=== PATIENT | female | born 2000 | race Caucasian/White ===

== ENCOUNTER 2020-04-17 03:18 | Inpatient (IN) | payer OTHER ==
[~2020-04-17] VITALS: Ht 162.6 cm; Wt 86.5 kg
[2020-04-17 03:38] VITALS: BP 136/84
[2020-04-17] MEDS ORDERED: PRENTAB9 PO (04:29)
[2020-04-17 05:27] LABS: HEMATOCRIT 41.3 % (36.0-47.0); HEMOGLOBIN 13.7 g/dl (12.0-15.5); MEAN CORPUSCULAR HEMOGLOBIN 28.1 pg (27.0-33.0); MEAN CORPUSCULAR HGB CONC 33.2 g/dl (32.0-36.5); MEAN CORPUSCULAR VOLUME 84.8 fl (80.0-96.0); PLATELET COUNT, AUTOMATED 164 10^3/uL (150-450); RED BLOOD COUNT 4.87 10^6/uL (4.00-5.40); WHITE BLOOD COUNT 12.9 10^3/uL (4.0-10.0)
[2020-04-17] MEDS ORDERED: FENTANYL 2MCG/ML ROPIVACAINE 0.2% IN 0.9% NACL 100ML IVBAG As Ordered ONE (06:07)
--- NOTE | 2020-04-17 06:57 | HPEPDOC ---
Obstetrical History & Physical General Date of Admission Apr 17, 2020 at 05:03 History of Present Illness 19yo at 39+3 presenting for c/o worsening painful ctx's. She made cervical change from /50/-3 to now 4/80/-1 while under observation in triage. Denies VB, LOF, or DFM. 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 Past Medical History Surgical History: Denies/None Family History Significant Family History: Hypertension (Mother) Social History Marital Status: Family situation: Spouse/partner home Psychosocial History: No pertinent psych hx * Smoker: non-smoker Alcohol: Denies Drugs: denies Abuse Violence Screening Have you been hit/kicked/slapp: No Have you been sexually assault: No Imunizations Tdap status: current (01/31/2020) Influenza Status: declined Allergies Coded Allergies: No Known Allergies (Verified Allergy, Unknown, 04/17/20) Medications Scheduled No.137/Iron/Folic Acd ( Vitamin Tablet) 1 Each Tablet, 1 TAB PO DAILY Physical Examination Physical Examination GENERAL: Alert and oriented times three. HEENT: NC/AT, airway patent and self-maintained ABDOMEN: Gravid and non-tender to touch. FETUS: Is vertex (VTX) by sterile vaginal examination (SVE), fetus is vertex (VTX) by Toribio and TAUS CARDS: well-perfused RESP: no exaggerated respiratory effort appreciated. EXTREMITIES: No edema. Vital Signs/I&O Vital Signs Date Time Temp Pulse Resp B/P (MAP) Pulse Ox O2 Delivery O2 Flow Rate FiO2 04/17/20 03:38 98.1 85 20 136/84 (101) Laboratory Data 24H LABS Laboratory Tests 2 04/17/20 05:09: Serology Scanned Report Hepatitis B Testing 04/17/20 05:15: Nucleated Red Blood Cells % (auto) 0.0 CBC/BMP Laboratory Tests 04/17/20 05:15 Urine Culture: No Growth Pertinent Laboratoy Data Blood Type: B+ RBC Antibody Screen: Negative HIV: Negative Hepatitis B: Negative Rapid Plasma Reagin: Nonreactive Rubella: Immune Varicella: Nonreactive Chlamydia/Gonorrhea: Negative Group B Streptococcus: Negative (03/27/2020) Quad Screen Test: Declined Cystic Fibrosis: Unknown Glucose Tolerance Test: 97 Anatomy Ultrasound Ultrasound Date: Dec 07, 2019 Placenta Location: Posterior Normal Anatomy: Yes (5cm left ovarian cyst) Placenta Previa: No Other Ultrasounds [id number] - remaining of anatomic features visualized and normal. 4.8cm left ovarian cyst noted. EFW 57th percentile Vaginal Examination Dilation: 4 cm Effacement: 80% Station: -1 Cervical Consistency: Soft Cervical Position: Anterior Presentation: Cephalic presentation (by Yash) Assessment Heart Rate (FHR): 130 Variability: Moderate Accelerations: Positive Decelerations: None Tocometer Contractions: Yes Frequency: every 2-5 min. Multi-drug resistant Organism: No history of MDRO Assessment/Plan Assessment 19yo at 39+3wks presenting for ctx's and found to be in active labor. SVE 4/80/-1. Membranes intact. Normotensive, afebrile, FHRT cat I. GBS neg. EFW 3500g. Plan Admit and orient. Correction Worker and consent. Diet: clears as tolerated Group B Streptococcus (GBS) negative. Labs and intravenous (IV) per unit protocol. Counseled on AROM and Pitocin for augmentation of labor (IOL) if indicated. Lactated Ringers (LR): Bolus 1000 mL, then at 125 mL/hr. Patient may have epidural if desired. Anticipate normal spontaneous delivery (). C-S as appropriate. IGNACIO DAVID DO Apr 17, 2020 06:57
--- NOTE | 2020-04-17 09:38 | IPNPDOC ---
Obstetrical Progress Note Date of Service Apr 17, 2020 Subjective To room for interval assessment after patient request and placement of epidural. Objective Vital Signs Date Time Temp Pulse Resp B/P (MAP) Pulse Ox O2 Delivery O2 Flow Rate FiO2 04/17/20 03:38 98.1 85 20 136/84 (101) Assessment Heart Rate (FHR): 125 Variability: Moderate Accelerations: Positive Decelerations: None Heart Rate Tracing: Category I Tocometer Contractions: Yes Frequency: regular Sterile Vaginal Examination Dilation: 6 cm Effacement (%): 90% Station: -2 Cervical Consistency: Soft Cervical Position: Anterior Postion/Presentation: Cephalic presentation (by exam) Assessment and Plan Status: Reassuring Group B Streptococcus: Negative Anticipate: Vaginal Delivery Additional Comments CAT I tracing, reactive. Normal VS. Patient progressing well on her own. Perform ed AROM. Clear. Continue expectant management, will reassess in 2h or sooner if clinically indicated. MONIE THOMAS DO Apr 17, 2020 09:38
[2020-04-17] MEDS ORDERED: ONDANSETRON 4MG/2ML VIAL IV PRN (09:45)
[2020-04-17] MEDS ORDERED: EPIDURAL/PCA KEYS XX PRN (09:45)
[2020-04-17] MEDS ORDERED: REFRIGERATOR IV KEYS XX PRN (09:45)
[2020-04-17] MEDS ORDERED: NALOXONE INJ 0.4MG/1ML VIAL (J2310 PER 1MG) IV PRN (09:45)
[2020-04-17] MEDS ORDERED: diphenhydrAMINE 50MG/ML VIAL (J1200) IV PRN (09:45)
[2020-04-17] MEDS ORDERED: ePHEDrine SULFATE 25 MG/5 ML(5MG/ML) SYRINGE IV PRN (09:45)
[2020-04-17] MEDS ORDERED: LACTATED RINGER'S 1000 ML IV PRN (09:45)
[2020-04-17] MEDS ORDERED: EPIDURAL COMMENT XX SCH (09:45)
[2020-04-17] MEDS ORDERED: FENTANYL/ROPIVACAINE/NACL BAG 100 ML EPIDURAL SCH (09:45)
[2020-04-17] MEDS ORDERED: OXYTOCIN 30 UNITS IN 0.9% NaCl 500ML IV BAG (J2590) As Ordered ONE (11:56)
[2020-04-17 12:49] LABS: CORD GAS ABE V -1.4; CORD GAS HCO3 V 24.7 MEQ/L; CORD GAS O2 SAT V 62.9 %; CORD GAS PCO2 V 45.7 mmHg; CORD GAS PH V 7.35 UNITS; CORD GAS PO2 V 25.9 mmHg; CORD GAS SBC V 22.3 MEQ/L; CORD GAS TCO2 V 26.1 MEQ/L
--- NOTE | 2020-04-17 12:58 | DNPDOC ---
[facility] Delivery Note Delivery Note DATE OF DELIVERY: 04/17/20 PREDELIVERY DIAGNOSIS: 39+3/7 weeks' gestation and labor. POST DELIVERY DIAGNOSIS: Delivered. PROCEDURE: Spontaneous vaginal delivery CUTTER OPERATOR BRICK: Dr. Micah Thomas DO ANESTHESIA: Epidural ESTIMATED BLOOD LOSS: 150 mL. FINDINGS: 3880g male , Score 9/9, nuchal cord times 0. DELIVERY SUMMARY: Patient is a 19-year-old 1 now para 1001 who was admitted to labor and delivery for labor and progressed to C/C/+2 without augmentation. With good maternal effort she delivered the head in the EDMOND position and it restituted to OA. With charissa downward traction and maternal effort the right anterior shoulder was delivered followed by the corpus atr aumatically. The baby had spontaneous movement and cry. Cord clamping was delayed for 60s and cut by the father of the baby, cord blood was obtained, and sent for gasses. Arterial blood was unable to be collected. With charissa downward traction the placenta was delivered and was inspected to be in-tact. The lower segment was cleared of clots and with pitocin and uteirne massage the uterus was noted to be firm and bleeding well controlled. The vagina and perineum were inspected and no lacerations were identified. The uterus remained firm. No complications. MICAH THOMAS DO Apr 17, 2020 12:58
[2020-04-17] MEDS ORDERED: OXYTOCIN DRIP 30 UNITS in IV 1 EA IV SCH (13:08)
[2020-04-17] MEDS ORDERED: IBUPROFEN 600MG TAB PO PRN (13:15)
[2020-04-17] MEDS ORDERED: DIBUCAINE 1% OINTMENT 30GM TOP PRN (13:15)
[2020-04-17] MEDS ORDERED: DOCUSATE SODIUM 100 MG CAP PO PRN (13:15)
[2020-04-17] MEDS ORDERED: IBUPROFEN 800 MG TAB PO PRN (13:15)
[2020-04-17] MEDS ORDERED: ACETAMINOPHEN 500 MG TAB PO PRN (13:15)
[2020-04-17] MEDS ORDERED: ACETAMINOPHEN TAB 650MG DOSE (2X325MG) PO PRN (13:15)
[2020-04-17 15:20] VITALS: BP 136/70
[2020-04-17 18:00] VITALS: BP 132/77
[2020-04-18 05:42] VITALS: BP 115/62
--- NOTE | 2020-04-18 08:19 | IPNPDOC ---
Progress Note Date of Service: Apr 18, 2020 Day#: 1 Progress Note SUBJECT: This morning, she is doing well without complaints. Ambulating, voiding and pain is well-controlled. Reports minimal lochia. +breast feeding OBJECTIVE: VSS and AF Alert and oriented times three. Abdomen: Fundus firm at U-2. Soft, NTTP. Ext: neg calf tenderness. ASSESSMENT: day #1 status post normal spontaneous vaginal delivery. Recovering in stable condition. PLAN: 1. Continue routine care 2. Discharge plans for tomorrow VS, I&O, 24H, Fishbone Vital Signs/I&O Vital Signs Date Time Temp Pulse Resp B/P (MAP) Pulse Ox O2 Delivery O2 Flow Rate FiO2 04/18/20 05:42 97.2 88 16 115/62 (79) 98 Room Air I&O- Last 24 Hours up to 6 AM 04/18/20 06:00 Intake Total 2220 ml Output Total 1500 ml Balance 720 ml Laboratory Data 24H LABS Laboratory Tests 2 04/17/20 12:38: Cord Venous Blood pH 7.350, Cord Venous Blood PCO2 45.7, Cord Venous Blood PO2 25.9, Cord Venous Blood HCO3 24.7, Cord Venous Blood Total CO2 26.1, Cord Venous Base Excess (Actual) -1.4, Cord Venous Base Excess (Standard) 22.3, Cord Venous Blood Oxygen Saturation 62.9 GRICELDA MORTON MD. Apr 18, 2020 08:19
[2020-04-18] MEDS ORDERED: PRENATAL VITAMINS CHEWABLE TABLET PO SCH (09:00)
[2020-04-18] MEDS ORDERED: IBUP80TA PO (12:08)
[2020-04-18] MEDS ORDERED: DIBU10OI TOP (12:08)
[2020-04-18] MEDS ORDERED: DOCU100C16 PO (12:08)
--- NOTE | 2020-04-24 18:08 | IPN ---
DATE: 04/18/2020 HISTORY: This patient requested a circumcision of her male . PLAN: After discussing risks and benefits of the circumcision, the medical and non-medical indications, the penile block and after care expressed understanding of penile block and after care and bleeding, signed the Consent Form, all questions were answered, 20 minute discussion, we await the clearance by the watch and clock repair clerk. BEV
--- NOTE | 2020-05-09 10:46 | DSES ---
DATE OF ADMISSION: 04/17/2020 DATE OF DISCHARGE: 04/18/2020 This is a 19-year-old 1, para 1 who had a spontaneous vaginal delivery of a live- male infant, 8 pounds, 3880 grams, scores of 9 and 9 at one and five minutes, respectively. Venous pH was 7.35, base excess was -1.4. Her admitting hemoglobin 13.7, hematocrit 41.3, and platelets were 164. Her vital signs on discharge: Blood pressure 115/62, respirations 16, pulse 88, temperature 97.2. We discussed phlebitis, cystitis, mastitis, endometritis, and cellulitis, diet, exercise, pain management, and perineal, breast, and wound care. On discharge, she was normocephalic, atraumatic. Neck: Full range of motion. Pupils equal and reactive to light. Distal pulses are symmetric. No evidence of deep venous thrombosis (DVT), pulmonary embolus (PE), or superficial phlebitis. Chest is clear bilaterally to bases. No wheezes or rhonchi. No costovertebral angle (CVA) tenderness. Abdomen soft. Four-quadrant bowel sounds are noted. No rashes, lesions or pruritus. No arthralgia, myalgia. No complaint of joint pain. No complaints of cough, wheeze, shortness of breath, or dyspnea on exertion. No nausea, vomiting, diarrhea, or constipation. In summary, we have a term gestation, delivered a live- male . Discharge improved. Medications were dispensed at [facility]. She has a 6-week check at [facility]. All questions were answered. A 20-minute discussion. BEV
== END 2020-04-18 18:45 | disposition home or self-care (01) | DRG 807 ==
LOC: M LDO 03:18 → M LDI 05:03 → M OBS 15:01
PROC: 10E0XZZ Delivery of Products of Conception, External Approach (ICD-10-PCS; principal; 2020-04-17)
DX: O80 Encounter for full-term uncomplicated delivery (principal); Z37.0 Single live birth; Z3A.39 39 weeks gestation of pregnancy

== ENCOUNTER 2021-03-23 21:25 | Inpatient (IN) | payer OTHER ==
[2021-03-23] VITALS (13 sets, daily range): BP systolic 119–142; BP diastolic 68–93
[~2021-03-23] VITALS: Ht 162.6 cm; Wt 85.0 kg
[~2021-03-23 21:25] MED LIST: DIBU28OI2 TOP; DOCU100C16 PO; IBUP80TA PO; PRENTAB9 PO
[2021-03-23] MEDS ORDERED: LACTATED RINGER'S 1000 ML IV STA (22:37)
[2021-03-23 22:39] LABS: HEMATOCRIT 40.7 % (36.0-47.0); HEMOGLOBIN 13.7 g/dl (12.0-15.5); MEAN CORPUSCULAR HEMOGLOBIN 29.5 pg (27.0-33.0); MEAN CORPUSCULAR HGB CONC 33.7 g/dl (32.0-36.5); MEAN CORPUSCULAR VOLUME 87.5 fl (80.0-96.0); PLATELET COUNT, AUTOMATED 158 10^3/uL (150-450); RED BLOOD COUNT 4.65 10^6/uL (4.00-5.40); WHITE BLOOD COUNT 12.5 10^3/uL (4.0-10.0)
[2021-03-23] MEDS ORDERED: OXYTOCIN DRIP 30 UNITS in IV 1 EA IV PRN (22:40)
[2021-03-23] MEDS ORDERED: LIDOCAINE 1% MDV 20ML VIAL INFIL PRN (22:40)
[2021-03-23] MEDS ORDERED: FENTANYL 2MCG/ML ROPIVACAINE 0.2% IN 0.9% NACL 100ML IVBAG As Ordered ONE (22:47)
--- NOTE | 2021-03-23 22:50 | HPEPDOC ---
Obstetrical History & Physical General Date of Admission Mar 23, 2021 at 21:55 History of Present Illness Ms. Marie is a 20yo at 38+6 presenting in active labor. She denied VB, LOF, decreased FM. She otherwise denied a 12 point ROS. 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 Past Medical History Medical History 3.6cm left ovarian cyst Surgical History: Denies/None Family History Significant Family History: No pertinent family hx Social History Marital Status: Family situation: Spouse/partner home Psychosocial History: No pertinent psych hx * Smoker: non-smoker Alcohol: Denies Drugs: denies Imunizations Tdap status: current Influenza Status: current Allergies Coded Allergies: No Known Allergies (Verified Allergy, Unknown, 04/17/20) Medications Scheduled No.137/Iron/Folic Acd ( Vitamin Tablet) 1 Each Tablet, 1 TAB PO DAILY Scheduled PRN Dibucaine (Dibucaine) 28 Gm Oint...g., 0 DOSE TOP Q4HP PRN for PAIN Docusate Sodium (Docusate Sodium) 100 Mg Capsule, 100 MG PO QHSP PRN for CONSTIPATION Ibuprofen (Ibuprofen) 800 Mg Tablet, 800 MG PO Q8HP PRN for PAIN LEVEL 6-10 Physical Examination Physical Examination GENERAL: Alert and oriented times three. BREAST: . ABDOMEN: Gravid and non-tender to touch. FETUS: Is vertex (VTX) by sterile vaginal examination (SVE), fetus is vertex (VTX) by US HEART RATE: Regular rate and rhythm. LUNGS: Clear to auscultation (CTA). EXTREMITIES: No edema. No clonus. Laboratory Data 24H LABS Laboratory Tests 2 03/23/21 22:24: CBC/BMP Urine Culture: No Growth Pertinent Laboratoy Data Blood Type: B+ RBC Antibody Screen: Negative HIV: Negative Hepatitis B: Negative Rapid Plasma Reagin: Nonreactive Rubella: Immune Varicella: Immune Chlamydia/Gonorrhea: Negative Group B Streptococcus: Negative Quad Screen Test: Negative Cystic Fibrosis: Unknown Glucose Tolerance Test: 116 Anatomy Ultrasound Placenta Location: Posterior Estimated Weight (grams): 3700 Vaginal Examination Dilation: 6 cm Effacement: 90% Station: -2 Cervical Consistency: Soft Cervical Position: Middle Presentation: Cephalic presentation (by US) Assessment Heart Rate (FHR): 135 Variability: Moderate Accelerations: Positive Decelerations: None Tocometer Contractions: Yes Frequency: regular Multi-drug resistant Organism: No history of MDRO Assessment/Plan Assessment Ms. Marie is a 20yo at 38+6 presenting in active labor. CAT I NST reactive, regular contractions. VS normal. SVE /-2. APC 1. close interval 2. history of precipitous labor 3. 3.6cm left ovarian cyst Rh pos, GBS neg, ceph by US, EFW 3700, placenta posterior, PP 8#9 Plan Admit and orient. Rental Sales Agent and consent. Diet: clears Group B Streptococcus (GBS) [negative]. Labs and intravenous (IV) per unit protocol. Counseled on Pitocin and induction of labor (IOL). Lactated Ringers (LR): Bolus 500mL, then saline lock Anticipate [normal spontaneous delivery ()]. C-S as appropriate. Plan for repeat TVUS for ovarian cyst at 6wk PP MONIE THOMAS DO Mar 23, 2021 22:50
--- NOTE | 2021-03-23 23:44 | IPNPDOC ---
Obstetrical Progress Note Date of Service Mar 23, 2021 Assessment and Plan Additional Comments Patient now has epidural in place. SVE unchanged /2, AROM blood tinged. CAT I NST reactive. MONIE THOMAS DO Mar 23, 2021 23:44
[2021-03-24] VITALS (14 sets, daily range): BP systolic 103–131; BP diastolic 58–78
[2021-03-24] MEDS ORDERED: NALOXONE INJ 0.4MG/1ML VIAL (J2310 PER 1MG) IV PRN (01:30)
[2021-03-24] MEDS ORDERED: LACTATED RINGER'S 1000 ML IV PRN (01:30)
[2021-03-24] MEDS ORDERED: ePHEDrine SULFATE 25 MG/5 ML(5MG/ML) SYRINGE IV PRN (01:30)
[2021-03-24] MEDS ORDERED: FENTANYL/ROPIVACAINE/NACL BAG 100 ML EPIDURAL SCH (01:30)
[2021-03-24] MEDS ORDERED: REFRIGERATOR IV KEYS XX PRN (01:30)
[2021-03-24] MEDS ORDERED: EPIDURAL COMMENT XX SCH (01:30)
[2021-03-24] MEDS ORDERED: OXYTOCIN DRIP 30 UNITS in IV 1 EA IV SCH (01:30)
[2021-03-24] MEDS ORDERED: EPIDURAL/PCA KEYS XX PRN (01:30)
[2021-03-24] MEDS ORDERED: diphenhydrAMINE 50MG/ML VIAL (J1200) IV PRN (01:30)
[2021-03-24] MEDS ORDERED: ONDANSETRON 4MG/2ML VIAL IV PRN (01:30)
[2021-03-24] MEDS ORDERED: ACETAMINOPHEN TAB 650MG DOSE (2X325MG) PO PRN (01:35)
[2021-03-24] MEDS ORDERED: IBUPROFEN 600MG TAB PO PRN (01:35)
[2021-03-24] MEDS ORDERED: DOCUSATE SODIUM 100MG CAPSULE PO PRN (01:35)
--- NOTE | 2021-03-24 01:35 | DNPDOC ---
[facility] Delivery Note Delivery Note DATE OF DELIVERY: 03/24/21 PREDELIVERY DIAGNOSIS: 39+0/7 weeks' gestation and labor. POST DELIVERY DIAGNOSIS: Delivered. PROCEDURE: Spontaneous vaginal delivery SUPERINTENDENT HORTICULTURE: Dr. Micah Thomas DO ANESTHESIA: epidural ESTIMATED BLOOD LOSS: 100 mL. FINDINGS: 3220g , Score 9/9, nuchal cord times 1 DELIVERY SUMMARY: Ms. Marie is a 20yo at 39+1 who presented in active labor and with the aid of pitocin augmentation progressed to C/C/+3. She delivered the head followed by the corpus without difficulty. There was a tight nuchal cord and the baby was delivered through it. The baby had spontaneous movement and cry. The cord was clamped after 60s and cut by the father of the baby. Cord gasses and blood were obtained. The placenta was delivered with gentle downward traction and was in-tact. There were no lacerations. With the aid of pitocin the uterus was firm and bleeding was scant. The sponge, lap and needle counts were correct. There were no complications. MICAH THOMAS DO Mar 24, 2021 01:35
[2021-03-24 01:44] LABS: CORD GAS ABE A -5.6; CORD GAS HCO3 A 21.5 MEQ/L; CORD GAS O2 SAT A 81.2 %; CORD GAS PCO2 A 47.1 mmHg; CORD GAS PH A 7.277 UNITS; CORD GAS PO2 A 37.8 mmHg; CORD GAS SBC A 19.6 MEQ/L; CORD GAS TCO2 A 22.9 MEQ/L
[2021-03-24 01:47] LABS: CORD GAS ABE V -0.5; CORD GAS HCO3 V 23.4 MEQ/L; CORD GAS O2 SAT V 87.6 %; CORD GAS PCO2 V 36.8 mmHg; CORD GAS PH V 7.422 UNITS; CORD GAS PO2 V 39.2 mmHg; CORD GAS SBC V 23.8 MEQ/L; CORD GAS TCO2 V 24.6 MEQ/L
[2021-03-24] MEDS ORDERED: OXYTOCIN 30 UNITS IN 0.9% NaCl 500ML IV BAG (J2590) As Ordered ONE (02:21)
[2021-03-24] MEDS: OXYTOCIN DRIP 30 UNITS in IV 1 EA IV SCH ×2 (02:26→06:20)
[2021-03-24] MEDS: PRENATAL VITAMINS CHEWABLE TABLET PO SCH (07:49)
[2021-03-24] MEDS: IBUPROFEN 800 MG TAB PO PRN (07:49)
[2021-03-24] MEDS: ACETAMINOPHEN 500 MG TAB PO PRN (14:41)
[2021-03-25] MEDS: ACETAMINOPHEN 500 MG TAB PO PRN (00:04)
[2021-03-25 06:00] VITALS: BP 131/83
[2021-03-25] MEDS: PRENATAL VITAMINS CHEWABLE TABLET PO SCH (08:35)
[2021-03-25] MEDS: IBUPROFEN 800 MG TAB PO PRN (08:35)
--- NOTE | 2021-03-25 11:32 | IPNPDOC ---
Progress Note Date of Service: Mar 25, 2021 Day#: 1 Progress Note SUBJECT: Abi is a 20-year-old 2 now Para 2001 PPD1 S/P of 3220g , Score 9/9, nuchal cord times 1, doing well. She has been ambulating, voiding spontaneously without issue and tolerating regular diet. Breast feeding without issue. Reports lochia is [like a normal period. OBJECTIVE: VITAL SIGNS: Within normal limits, afebrile. Alert and oriented times three. Breath sounds clear to auscultation. Heart rate: Regular rate and rhythm, no murmurs, rubs or gallops. Abdomen: Fundus firm at U-2. Soft, NTTP. ASSESSMENT: Abi is a 20-year-old 2 now Para 2001 PPD1 S/P of 3220g infant, Score 9/9, nuchal cord times 1, doing well. Vitals within normal limits, afebrile, hemodynamically stable with no evidence of infection. PLAN: 1. Discharge to home today 2. Tylenol and Motrin for pain. 3. Encourage breast feeding and ambulation. 4. Patch for contraception for now, 5. Routine PP visit in 6 weeks in clinic. 6. Discussed return precautions at length. VS, I&O, 24H, Fishbone Vital Signs/I&O Vital Signs Date Time Temp Pulse Resp B/P (MAP) Pulse Ox O2 Delivery O2 Flow Rate FiO2 03/25/21 06:00 97.5 67 16 131/83 (99) 98 Room Air JOSEF ROJAS MD Mar 25, 2021 9:40 am
[2021-03-25] MEDS ORDERED: ACET-683 PO (11:37)
== END 2021-03-25 14:25 | disposition home or self-care (01) | DRG 807 ==
LOC: M LDO 21:25 → M LDI 21:55 → M OBS 03-24 03:37
PROVIDERS: ADMIT Obstetrics & Gynecology; ATTEND Obstetrics & Gynecology
PROC: 10907ZC Drainage of Amniotic Fluid, Therapeutic from Products of Conception, Via Natural or Artificial Opening (ICD-10-PCS; 2021-03-23)
PROC: 10E0XZZ Delivery of Products of Conception, External Approach (ICD-10-PCS; principal; 2021-03-24)
DX: O69.1XX0 Labor and delivery complicated by cord around neck, with compression, not applicable or unspecified (principal); Z37.0 Single live birth; Z3A.38 38 weeks gestation of pregnancy

== ENCOUNTER 2021-04-07 22:03 | Emergency (ER) | payer OTHER ==
[~2021-04-07 22:03] MED LIST changes: +ACET-683 PO
[2021-04-07 22:50] LABS: BASO # 0.1 10^3/uL (0.0-0.2); BASO % 0.7 % (0.0-1.0); EOS # 0.4 10^3/uL (0.0-0.5); EOS % 3.6 % (0.0-3.0); HEMATOCRIT 33.1 % (36.0-47.0); HEMOGLOBIN 11.1 g/dl (12.0-15.5); LYMPH # 2.2 10^3/uL (1.5-5.0); LYMPH % 21.3 % (24.0-44.0); MEAN CORPUSCULAR HEMOGLOBIN 29.4 pg (27.0-33.0); MEAN CORPUSCULAR HGB CONC 33.5 g/dl (32.0-36.5); MEAN CORPUSCULAR VOLUME 87.8 fl (80.0-96.0); MONO # 0.7 10^3/uL (0.0-0.8); MONO % 6.6 % (2.0-8.0); NEUTROPHILS # 6.9 10^3/uL (1.5-8.5); PLATELET COUNT, AUTOMATED 227 10^3/uL (150-450); RED BLOOD COUNT 3.77 10^6/uL (4.00-5.40); WHITE BLOOD COUNT 10.2 10^3/uL (4.0-10.0)
[2021-04-07 23:13] LABS: ALBUMIN 2.9 GM/DL (3.2-5.2); ALT/SGPT 25 U/L (12-78); BILIRUBIN,DIRECT < 0.1 MG/DL (0.0-0.2); BILIRUBIN,TOTAL 0.3 MG/DL (0.2-1.0); BLOOD UREA NITROGEN 16 MG/DL (7-18); CALCIUM LEVEL 7.9 MG/DL (8.5-10.1); CARBON DIOXIDE LEVEL 27 MEQ/L (21-32); CHLORIDE LEVEL 108 MEQ/L (98-107); CREATININE FOR GFR 0.44 MG/DL (0.55-1.30); GLOMERULAR FILTRATION RATE > 60.0 (>60); GLUCOSE, FASTING 92 MG/DL (70-100); POTASSIUM SERUM 3.7 MEQ/L (3.5-5.1); SODIUM LEVEL 141 MEQ/L (136-145); TOTAL PROTEIN 5.7 GM/DL (6.4-8.2)
--- NOTE | 2021-04-08 03:31 | REPVR ---
PROCEDURE INFORMATION: Exam: US Nonobstetric Pelvis; Complete Exam date and time: 04/08/2021 2:37 AM Age: 20 years old Clinical indication: Vaginal bleeding; Additional info: 2 weeks post with vaginal bleeding, eval for poc TECHNIQUE: Imaging protocol: Transabdominal pelvic nonobstetric ultrasound. Complete exam. Real time ultrasound with image documentation. COMPARISON: No relevant prior studies available. FINDINGS: Uterus/cervix: Uterus measures 13.3 x 6.0 x 9.3 cm. Uterus is retroverted. Endometrial stripe measures 2.9 cm in thickness. No uterine masses evident. Mild hypervascularity within the endometrium a color Doppler. No intrauterine gestation sac seen. Right adnexa: Right ovary is obscured by overlying bowel gas. Left adnexa: Left ovary is obscured by overlying bowel gas. Intraperitoneal space: No free fluid. Urinary bladder: Normal. IMPRESSION: Thickened endometrial stripe with mild hypervascularity. Suspicious for retained products of conception. Electronically signed by: Nadine Garcia On 04/08/2021 03:31:29 AM
[2021-04-08] MEDS ORDERED: METHYLERGONOVINE MALEATE 0.2 MG/ML VIAL (J2210) IM STA (04:17)
--- NOTE | 2021-04-08 04:59 | CR.PDOC ---
General Date of Consultation: Apr 08, 2021 Consultation REASON FOR CONSULTATION/CHIEF COMPLAINT: bleeding HISTORY OF PRESENT ILLNESS: Consulted by ER physician regarding patient with episode of heavy bleeding. Pt is a 20yo s/p precipitous on 03/25/21 presents to the ER after experiencing an episode of heavy bleeding at home. Pt states that her lochia has overall been minimal since delivery, with occasional episodes of heavier bleeding (not saturating pads previously), but states today she experienced an episode of heavy clots. She states after saturating a pad with clots, she took a shower and continued to note some bright red bleeding however unable to quantify as it all occurred while showering. Since arrival to the ER, her bleeding has been minimal. Currently sitting on chux pad that has been in place for several hours with very minimal bleeding. Otherwise without complaint today. Vaginal exam completed by ER physician - per report, small amount of bright red bleeding noted on speculum exam. No lacerations noted. Cervix grossly normal ALLERGIES: Please see below. HOME MEDICATIONS: Please see below. PAST MEDICAL HISTORY: 1. unremarkable. PAST SURGICAL HISTORY: denies FAMILY HISTORY: unremarkable SOCIAL HISTORY: denies tobacco, EtOH or illicit drug use REVIEW OF SYSTEMS: CONSTITUTIONAL: denies. HEENT: denies CARDIOVASCULAR: denies palpitations, chest pain RESPIRATORY: denies dyspnea, coughing, wheezing GENITOURINARY: denies dysuria, hematuria MUSCULOSKELETAL: denies GASTROINTESTINAL: denies. SKIN: denies NEUROLOGICAL: denies PSYCHIATRIC: denies symptoms of blues or depression ENDOCRINE: denies HEMATOLOGIC/LYMPHATIC: denies. PHYSICAL EXAMINATION: VITAL SIGNS: Please see below. GENERAL APPEARANCE: AAO x3, NAD. Pt has very pale complexion, states this is her baseline. HEENT: normocephalic, atraumatic RESPIRATORY: normal work of breathing CARDIOVASCULAR: normal rate, rhythm ABDOMEN: soft, nontender. Difficult to palpate uterus (retroverted ) EXTREMITIES: no swelling, pain PSYCHIATRIC: normal mood, affect. LABORATORY DATA: Please see below. ASSESSMENT/PLAN: Reviewed US findings with patient that show thickened endometrial stripe of 2.9cm with mild hypervascularity. Discussed that this could indicate retained products of conception vs. subinvolution of uterus. Pt's bleeding has decreased to a minimal amount since her episode of heavy bleeding earlier today. Vital signs and H/H are stable and patient is asymptomatic. Exam by ER physician unremarkable. Reviewed options for management including expectant, medical or surgical. Offered methergine series for medical management (no hx of hypertensive disorders) vs. D&C due to findings of thickened endometrium. Pt does not wish to remain in the ER for a longer duration of time, but is also hesitant of going home with a medication. Offered 1 time dose of methergine in ER given very minimal bleeding at this time. Pt amenable to this plan. States her next follow up is scheduled for 6wk PP. Encouraged her to contact clinic for follow up next week to reassess bleeding. Pt also aware of number to contact for after hour emergencies if she continues to have heavy bleeding. All questions answered. Vital Signs/I&O Vital Signs Date Time Temp Pulse Resp B/P (MAP) Pulse Ox O2 Delivery O2 Flow Rate FiO2 04/07/21 22:18 97.4 107 18 96 Room Air 04/07/21 22:17 129/77 (94) Laboratory Data Labs 24H Laboratory Tests 2 04/07/21 22:39: Immature Granulocyte % (Auto) 0.8, Neutrophils (%) (Auto) 67.0H, Lymphocytes (%) (Auto) 21.3L, Monocytes (%) (Auto) 6.6, Eosinophils (%) (Auto) 3.6H, Basophils (%) (Auto) 0.7, Neutrophils # (Auto) 6.9, Lymphocytes # (Auto) 2.2, Monocytes # (Auto) 0.7, Eosinophils # (Auto) 0.4, Basophils # (Auto) 0.1, Nucleated Red Blood Cells % (auto) 0.0, Anion Gap 6L, Glomerular Filtration Rate > 60.0, Calcium Level 7.9L, Total Bilirubin 0.3, Direct Bilirubin < 0.1, Aspartate Amino Transf (AST/SGOT) 14, Alanine Aminotransferase (ALT/SGPT) 25, Alkaline Phosphatase 91, Total Protein 5.7L, Albumin 2.9L, Albumin/Globulin Ratio 1.0L CBC/BMP Laboratory Tests 04/07/21 22:39 Allergies Coded Allergies: No Known Allergies (Verified Allergy, Unknown, 04/07/21) Home Medications Scheduled No.137/Iron/Folic Acd ( Vitamin Tablet) 1 Each Tablet, 1 TAB PO DAILY, (Reported) Scheduled PRN Acetaminophen (Acetaminophen) 500 Mg Tablet, 1,000 MG PO Q6HP PRN for PAIN LEVEL 6-10 for 14 Days, #30 Docusate Sodium (Docusate Sodium) 100 Mg Capsule, 100 MG PO QHSP PRN for CONSTIPATION for 10 Days, #20 Ibuprofen (Ibuprofen) 800 Mg Tablet, 800 MG PO Q8HP PRN for PAIN LEVEL 6-10 for 7 Days, #20 JAYCEE OSUNA M.D. Apr 08, 2021 04:59
[2021-04-08 05:16] VITALS: BP 120/78
== END 2021-04-08 06:04 | disposition home or self-care (01) ==
LOC: M ED 22:03
DX: O72.1 Other immediate postpartum hemorrhage (principal); Z79.899 Other long term (current) drug therapy
CPT/HCPCS: 76856; 80048; 80076; 85025; 86850; 86900; 86901; 96372; 99285; J2210

== ENCOUNTER 2021-04-20 20:25 | Day surgery (SDC) | payer OTHER ==
[~2021-04-20] VITALS: Ht 162.6 cm; Wt 72.7 kg
[2021-04-20] MEDS ORDERED: NS 1,000 ML IV ONE ×2 (20:35)
[2021-04-20 20:48] LABS: VENOUS BASE EXCESS -2.4 (-2.0-2.0); VENOUS HCO3 23.8 MEQ/L (23.0-27.0); VENOUS O2 SATURATION 84.3 % (60.0-80.0); VENOUS PARTIAL PRESSURE CO2 47.5 mmHg (38.0-50.0); VENOUS PH 7.317 UNITS (7.330-7.430); VENOUS STANDARD HCO3 22.3 MEQ/L; VENOUS TOTAL CO2 25.2 MEQ/L (24.0-28.0)
[2021-04-20 20:52] LABS: BASO # 0.1 10^3/uL (0.0-0.2); BASO % 0.7 % (0.0-1.0); EOS # 0.4 10^3/uL (0.0-0.5); EOS % 3.5 % (0.0-3.0); HEMATOCRIT 24.1 % (36.0-47.0); HEMOGLOBIN 7.5 g/dl (12.0-15.5); LYMPH # 3.3 10^3/uL (1.5-5.0); LYMPH % 30.8 % (24.0-44.0); MEAN CORPUSCULAR HEMOGLOBIN 27.8 pg (27.0-33.0); MEAN CORPUSCULAR HGB CONC 31.1 g/dl (32.0-36.5); MEAN CORPUSCULAR VOLUME 89.3 fl (80.0-96.0); MONO # 0.8 10^3/uL (0.0-0.8); MONO % 7.1 % (2.0-8.0); NEUTROPHILS # 6.1 10^3/uL (1.5-8.5); NEUTROPHILS % 57.2 % (36.0-66.0); PLATELET COUNT, AUTOMATED 284 10^3/uL (150-450); WHITE BLOOD COUNT 10.7 10^3/uL (4.0-10.0)
[2021-04-20 21:02] LABS: INR 1.02; PROTHROMBIN TIME 13.8 SECONDS (12.7-14.5)
[2021-04-20 21:03] LABS: PARTIAL THROMBOPLASTIN TIME 23.6 SECONDS (25.9-37.0)
[2021-04-20 21:22] LABS: ALBUMIN 2.8 GM/DL (3.2-5.2); ALT/SGPT 34 U/L (12-78); BILIRUBIN,DIRECT 0.1 MG/DL (0.0-0.2); BILIRUBIN,TOTAL 0.4 MG/DL (0.2-1.0); BLOOD UREA NITROGEN 13 MG/DL (7-18); CALCIUM LEVEL 8.1 MG/DL (8.5-10.1); CARBON DIOXIDE LEVEL 24 MEQ/L (21-32); CHLORIDE LEVEL 110 MEQ/L (98-107); CK-MB VALUE MASS < 1.0 NG/ML (<3.6); CPK CREATINE PHOSPHOKINASE 42 U/L (26-192); ETHYL ALCOHOL (ETHANOL) < 0.003 % (0.000-0.010); FREE T4 0.74 NG/DL (0.76-1.46); GLOMERULAR FILTRATION RATE > 60.0 (>60); GLUCOSE, FASTING 145 MG/DL (70-100); MAGNESIUM LEVEL 1.9 MG/DL (1.8-2.4); MB/CK RELATIVE INDEX 2.38 (< OR =4); POTASSIUM SERUM 3.4 MEQ/L (3.5-5.1); SODIUM LEVEL 142 MEQ/L (136-145); TOTAL PROTEIN 5.5 GM/DL (6.4-8.2); TROPONIN I < 0.02 NG/ML (< 0.10); URIC ACID 5.6 MG/DL (2.6-6.0)
--- NOTE | 2021-04-20 21:54 | REPVR ---
PROCEDURE INFORMATION: Exam: XR Chest Exam date and time: 04/20/21 (8:43pm) Age: 20 years old Clinical indication: Vaginal bleeding. Syncope / near-syncope. TECHNIQUE: Imaging protocol: XR of the chest Views: 1 view COMPARISON: No relevant prior studies available FINDINGS: Lungs: Unremarkable. No consolidation. Pleural spaces: Unremarkable. No pleural effusions. No pneumothorax. Heart/Mediastinum: Unremarkable. No cardiomegaly. Bones/joints: Dextroscoliosis of the thoracic spine. IMPRESSION: No acute findings. Electronically signed by: Virginia Mejía On 04/20/2021 21:54:07 PM
[2021-04-20 22:08] VITALS: BP 127/72
--- NOTE | 2021-04-20 22:11 | REPVR ---
PROCEDURE INFORMATION: Exam: US Nonobstetric Pelvis; Complete Exam date and time: 04/20/21 (8:50pm) Age: 20 years old Clinical indication: Pelvic pain. Hemorrhage. Post- (3.5 weeks). TECHNIQUE: Imaging protocol: Transabdominal pelvic non-obstetric ultrasound. Complete examination. Real time ultrasound with image documentation. COMPARISON: US PELVIS of 04/08/21 FINDINGS: Patient is 3.5 weeks post-. The uterus measures 11.8 x 5.5 x 6.8 cm in dimensions. The endometrium is complex and thickened (22 mm thickness), and shows mild hypervascularity. A relatively more echogenci area is noted within the endometrium (2.1 x 1.7 x 2.0 cm size) (1.9 cm avg. size). Right ovary not clearly visualized. The left ovary measures 3.8 x 3.0 x 3.3 cm in size, with no evidence of torsion. Left ovarian cyst (3.1 x 2.2 x 3.1 cm) (2.8 cm avg. size). There is no evidence of ovarian torsion on Doppler evaluation. Trace free CDS fluid. No solid adnexal masses. IMPRESSION: Once again, a complex, thickened endometrium (22 mm thickness) is seen, showing mild hypervascularity. An area of more echogenic texture is seen within the endometrium. Possible retained products of conception (also suggested on sonogram done 12 days ago). This needs correlation. Right ovary not clearly visualized. Left ovarian cyst (2.8 cm size), with no evidence of torsion. Trace free fluid. Electronically signed by: Virginia Mejía On 04/20/2021 22:11:29 PM
[2021-04-20 22:23] VITALS: BP 109/58
[2021-04-20 22:23] LABS: RSV AMPLIFICATION NEGATIVE (NEGATIVE)
--- NOTE | 2021-04-20 22:42 | REPVR ---
PROCEDURE INFORMATION: Exam: CT Head without Contrast Exam date and time: 04/20/21 (9:12pm) Age: 20 years old Clinical indication: Syncope and collapse TECHNIQUE: Imaging protocol: Computed tomography of the head without contrast. Radiation optimization: All CT scans at this facility use at least one of these dose optimization techniques: automated exposure control; mA and/or kV adjustment per patient size (includes targeted exams where dose is matched to clinical indication); or iterative reconstruction. COMPARISON: No relevant prior studies available FINDINGS: Brain: No acute hemorrhage. Unremarkable white matter. No mass effect. Findings perhaps suggestive of 'empty sella'. Cerebral ventricles: No ventriculomegaly. Paranasal sinuses: No air-fluid levels. Mild ethmoid sinus mucosal thickening. Mastoid air cells: Visualized mastoid air cells are well aerated. Bones/joints: Unremarkable. No acute fracture. Soft tissues: Unremarkable. IMPRESSION: No acute intracranial pathology. Possible 'empty sella' --- usually an incidental finding. Electronically signed by: Virginia Mejía On 04/20/2021 22:42:26 PM
[2021-04-20] MEDS ORDERED: ACETAMINOPHEN 650 MG SUPP As Ordered ONE (22:47)
[2021-04-20] MEDS ORDERED: METHYLERGONOVINE MALEATE 0.2 MG/ML VIAL (J2210) As Ordered ONE (22:48)
[2021-04-20] MEDS ORDERED: DOK100TA2 PO (23:00)
[2021-04-20] MEDS ORDERED: IBUP80TA PO (23:00)
[2021-04-20] MEDS ORDERED: ACET-683 PO (23:00)
[2021-04-20] MEDS ORDERED: HOME MED LIST COMPLETE! XX SCH (23:05)
[2021-04-20 23:23] VITALS: BP 120/56
[2021-04-20 23:41] VITALS: BP 120/56
[2021-04-20 23:56] VITALS: BP 119/59
[2021-04-20 23:57] LABS: AMPHETAMINES LEVEL URINE NEGATIVE (NEGATIVE); BARBITURATES URINE NEGATIVE (NEGATIVE); BENZODIAZEPINES URINE NEGATIVE (NEGATIVE); CANNABINOIDS URINE NEGATIVE (NEGATIVE); COCAINE METABOLITE URINE NEGATIVE (NEGATIVE); METHADONE URINE NEGATIVE (NEGATIVE); OPIATES URINE NEGATIVE (NEGATIVE); PHENCYCLIDINE URINE NEGATIVE (NEGATIVE)
[2021-04-21] VITALS (7 sets, daily range): BP systolic 102–125; BP diastolic 59–67
[2021-04-21] MEDS ORDERED: ceFAZolin 2 GM/D5W 50 ML IV BAG (J0690 PER 500MG) As Ordered ONE (00:26)
[2021-04-21] MEDS ORDERED: dexameTHASONE 4 MG/ML 1ML VIAL (J1100 PER 1MG) As Ordered ONE (00:31)
[2021-04-21] MEDS ORDERED: CHLOROPROCAINE PRES. FREE 3% 20ML VIAL As Ordered ONE (00:31)
[2021-04-21] MEDS ORDERED: ONDANSETRON 4MG/2ML VIAL As Ordered ONE (00:31)
[2021-04-21] MEDS ORDERED: fentaNYL 100 MCG/2 ML INJECTION (J3010) As Ordered ONE (00:31)
[2021-04-21] MEDS ORDERED: METOCLOPRAMIDE INJ 10MG/2ML VIAL (J2765 PER 1) As Ordered ONE (00:31)
[2021-04-21] MEDS ORDERED: OXYTOCIN INJ 10 UNITS/ML VIAL (J2590) As Ordered ONE ×3 (00:32→00:34)
[2021-04-21] MEDS ORDERED: ePHEDrine SULFATE 25 MG/5 ML(5MG/ML) SYRINGE As Ordered ONE (00:44)
[2021-04-21] MEDS ORDERED: PHENYLephrine 500MCG 5ML (100MCG/ML) SYRINGE As Ordered ONE (00:44)
[2021-04-21] MEDS ORDERED: fentaNYL 100 MCG/2 ML INJECTION (J3010) IV PRN (01:15)
[2021-04-21] MEDS ORDERED: KETOROLAC 30 MG/ML 1ML VIAL IV PRN ×2 (01:15→01:25)
[2021-04-21] MEDS ORDERED: ONDANSETRON 4MG/2ML VIAL IV PRN (01:15)
[2021-04-21] MEDS ORDERED: HYDROMORPHONE HCL 0.5 MG/ 0.5 ML SYRINGE (J1170 PER 1) IV PRN (01:15)
[2021-04-21] MEDS ORDERED: LR 1,000 ML IV SCH ×2 (01:15→01:30)
[2021-04-21] MEDS ORDERED: oxyCODONE 5MG TAB PO PRN (01:15)
[2021-04-21] MEDS ORDERED: NS IV ONE (01:30)
[2021-04-21] MEDS ORDERED: OXYTOCIN IV ONE (01:30)
[2021-04-21 04:12] LABS: HEMATOCRIT 26.9 % (36.0-47.0); HEMOGLOBIN 8.8 g/dl (12.0-15.5); MEAN CORPUSCULAR HEMOGLOBIN 28.6 pg (27.0-33.0); MEAN CORPUSCULAR HGB CONC 32.7 g/dl (32.0-36.5); MEAN CORPUSCULAR VOLUME 87.3 fl (80.0-96.0); PLATELET COUNT, AUTOMATED 201 10^3/uL (150-450); RED BLOOD COUNT 3.08 10^6/uL (4.00-5.40); WHITE BLOOD COUNT 9.4 10^3/uL (4.0-10.0)
--- NOTE | 2021-04-22 19:52 | ECGEPIP ---
[facility] - ED Test Date: 2021-04-20 Pat Name: MINESH BARBOSA Department: Room: [place] [address] Gender: Female Stand Grinder: YINKA : 2000 Requested By: MADHURI Ledezma Order Number: [id number] Reading MD: Carmen Hooper Measurements Intervals [place] Rate: 85 P: 30 MI: 148 QRS: 35 QRSD: 76 T: 42 QT: 374 QTc: 445 Interpretive Statements Normal sinus rhythm NSTTW abnormalities No prior Electronically Signed on 04-22-2021 19:52:09 EDT by Carmen Hooper
== END 2021-04-21 10:25 | disposition home or self-care (01) ==
LOC: M ED 20:25 → M SDC 20:26 → UNDOADMIN 22:23 → M ED INP 22:23 → ENRESERV 23:27 → M MSPAV 04-21 02:15 → M ED INP 04-21 02:15 → M MSPAV 04-21 02:15 → UNDODISIN 04-21 10:25 → M SDC 04-21 10:25 → M MSPAV 04-22 02:15
PROVIDERS: ATTEND Obstetrics & Gynecology
DX: O72.2 Delayed and secondary postpartum hemorrhage (principal)
CPT/HCPCS: 36415; 36430; 51702; 59160; 70450; 71045; 76856; 80047; 80048; 80076; 80307; 82077; 82550; 82553; 82803; 83605; 83735; 84439; 84443; 84484; 84550; 85025; 85027; 85610; 85730; 86850; 86900; 86901; 86920; 87631; 88305; 93005; 93041; 93976; 94760; 96360; 96361; 99285; J0690; J1100; J2370; J2400; J2405; J2590; J2765; J3010; P9016